=== PATIENT | female | born 1970 | race Caucasian/White ===

== ENCOUNTER 2017-12-19 17:50 | Emergency (ER) | payer MEDICARE, MEDICAID ==
[~2017-12-19] VITALS: Ht 160 cm; Wt 104.5 kg
[2017-12-19 18:05] VITALS: BP 134/86; TEMP 97.7
[2017-12-19] MEDS ORDERED: SYNTHROID0.112 MG/T PO (18:21)
[2017-12-19] MEDS ORDERED: BLOOD PRESSURE MED PO (18:21)
[2017-12-19] MEDS ORDERED: VITAMIN D32000 I1 PO (18:22)
[2017-12-19] MEDS ORDERED: FLEXERIL5 MG PO (18:22)
[2017-12-19] MEDS ORDERED: CELEXA10 MG PO (18:22)
[2017-12-19 19:18] VITALS: PULSE 106
== END 2017-12-19 19:18 | disposition home or self-care (01) ==
LOC: COL.ER 17:50
DX: M79.672 Pain in left foot (principal); R22.42 Localized swelling, mass and lump, left lower limb; F43.10 Post-traumatic stress disorder, unspecified; E03.9 Hypothyroidism, unspecified

== ENCOUNTER → 2022-12-17 | Outpatient (CLI) | payer MEDICARE, MEDICAID ==
[~2022-12-17] MED LIST: BLOOD PRESSURE MED PO; CELEXA10 MG PO; FLEXERIL5 MG PO; SYNTHROID0.112 MG/T PO; VITAMIN D32000 I1 PO
== END ==
LOC: COL.RAD 08:41
DX: M25.461 Effusion, right knee (principal)

== ENCOUNTER → 2023-10-30 | Outpatient (CLI) | payer MEDICARE | LOC: MC.RAD 10:52 | DX: Z12.31 Encounter for screening mammogram for malignant neoplasm of breast (principal) ==

== ENCOUNTER → 2023-11-03 | Outpatient (CLI) | payer MEDICARE | LOC: COL.RAD 14:34 | DX: M71.22 Synovial cyst of popliteal space [Baker], left knee (principal) ==